=== PATIENT | female | born 1950 | race Caucasian/White ===

== ENCOUNTER → 2016-06-06 | Outpatient (CLI) | payer OTHER, BC ==
--- NOTE | 2016-06-06 12:46 | MAMMOGRAPHY REPORT ---
UNILATERAL RIGHT DIGITAL DIAGNOSTIC MAMMOGRAM TOMOSYNTHESIS WITH CAD AND TARGETED RIGHT ULTRASOUND: 06/06/2016 CLINICAL HISTORY: 65 year old woman with no family history of breast cancer presents with a burning and aching sensation in her right breast that begins in the retroareolar breast and travels laterall y in the 9:00 to 9:30 axis towards the midaxillary line. She reports the pain is generally constant , centered became approximately 5 months ago, but sometimes it increases in intensity. No palpable lump, skin changes or nipple discharge. TECHNIQUE: Right breast tomosynthesis in addition to standard 2D mammography was performed. Current study was also evaluated with a Computer Aided Detection (CAD) system. COMPARISON: Comparison is made to exams dated: 09/20/2015 mammogram - [facility] a nd 10/23/2007. BREAST COMPOSITION: There are scattered areas of fibroglandular density in the right breast. FINDINGS: The parenchymal pattern is similar to prior mammograms. No new suspicious mass, cognos architect ural distortion or cluster of microcalcifications is seen. Targeted ultrasound was performed in the area of burning and aching sensation pointed out by the pat ient (in the retroareolar right breast extending laterally in the 9:00 and 9:30 axes towards the mid axillary line). Normal fibroglandular tissue is seen without a discrete solid or cystic mass. Inci dental note is made of minimal benign duct ectasia in the retroareolar breast. IMPRESSION: ACR BI-RADS CATEGORY 2: BENIGN, TARGETED ULTRASOUND ACR BI-RADS CATEGORY 2: BENIGN There is no mammographic or targeted sonographic evidence of malignancy. No suspicious mammographic or sonographic abnormality was identified to explain the constant burning and aching sensation in t he right breast. Clinical follow-up is recommended. Potential options which may help to ease breas t pain include mineral supplements such as selenium, magnesium and manganese; evening primrose oil a nd NSAIDs. These results and recommendations were discussed with the patient at the time of the exam. Otherwis e recommend return to annual screening mammography schedule. Approximately 10% of breast cancers are not detected with mammography. A negative mammographic repor t should not delay biopsy if a clinically suggestive mass is present. Meena Kovacs M.D. ay/:06/06/2016 11:41:54 Sales Manager: Taylor BRADLEY([place])([place]), [facility] letter sent: Normal 05/07 BI-RADS Code: ACR BI-RADS Category 2: Benign Ultrasound BI-RADS: ACR BI-RADS Category 2: Benign
== END | disposition home or self-care (01) ==
LOC: C.MAMM 11:04
PROVIDERS: ATTEND Internal Medicine
DX: N64.4 Mastodynia (principal)